=== PATIENT | female | born 1970 | race Caucasian/White ===

== ENCOUNTER → 2017-08-06 11:13 | Outpatient (REF) | payer OTHER, SELFPAY ==
[2017-08-06 18:26] LABS: Basophils # 0.1 K/mm3 (0-0.2); Basophils % 0.5 % (0.1-2.0); Eosinophils # 0.1 K/mm3 (0.0-0.4); Eosinophils % 0.8 % (0.1-12.0); Hematocrit 39.6 % (37.0-47.0); Hemoglobin 11.8 g/dL (12.2-16.2); Lymphocytes # 2.5 K/mm3 (0.7-4.5); Lymphocytes % 26.4 K/mm3 (10-50); Mean Corpuscular HGB Conc 29.7 g/dL (31.8-35.4); Mean Corpuscular Hemoglobin 24.6 pg (27.0-31.2); Mean Corpuscular Volume 82.7 fl (81-99); Mean Platelet Volume 8.4 fl (7.4-10.4); Monocytes # 0.6 K/mm3 (0.1-1.0); Monocytes % 6.7 % (1.7-9.3); Neutrophils # 6.2 K/mm3 (1.8-7.8); Neutrophils % 65.6 % (37.0-80.0); Platelet Count 331 K/mm3 (142-424); Red Blood Count 4.79 M/mm3 (4.20-5.40); Red Cell Distribution Width 17.4 % (11.5-17.5); White Blood Count 9.4 K/mm3 (4.8-10.8)
[2017-08-06 20:06] LABS: Alanine Aminotransferase 18 U/L (12-78); Albumin Level 3.7 gm/dL (3.4-5.0); Albumin/Globulin Ratio 1.2 (1.1-1.8); Alkaline Phosphatase 72 U/L (46-116); Anion Gap 15.4 mEq/L (5-15); Aspartate Amino Transferase 12 U/L (15-37); Bilirubin,Total 0.2 mg/dL (0.2-1.0); Blood Urea Nitrogen 9 mg/dL (7-18); Calcium 8.5 mg/dL (8.5-10.1); Carbon Dioxide 26 mmol/L (21.0-32.0); Chloride 106 mmol/L (98-107); Chol/HDL Ratio 4.7 (1-3.5); Cholesterol 180 mg/dL (140-200); Estimated Glomerular Filt Rate 90 ml/min (>60); GFR (African American) 109 ML/MIN (>60); Globulin 3.1 gm/dl (1.3-3.2); Glucose 78 mg/dL (74-106); HDL Cholesterol 38 mg/dL (29-89); LDL Cholesterol 122 mg/dL (0-130); Potassium 4.4 mmoL/L (3.5-5.1); Sodium 143 mmol/L (136-145); T4 (Thyroxine) 6.4 ug/dl (4.7-13.3); Thyroid Stimulating Hormone 2.32 uIU/ml (0.358-3.740); Total Protein,Serum 6.8 gm/dL (6.4-8.2); Triglycerides 99 mg/dL (30-200); VLDL Cholesterol 20 mg/dL (0-40)
[2017-08-06 20:08] LABS: C-Reactive Protein < 0.2 mg/L (0.0-0.9)
[2017-08-06 20:13] LABS: Erythrocyte Sedimentation Rate 11 mm/hr (0-20)
[2017-08-08 10:28] LABS: Vitamin D 25 Hydroxy 32.9 ng/mL (30.0-100.0)
[2017-08-08 10:30] LABS: RA Latex Turbid. <10.0 IU/mL (0.0-13.9); Vitamin B12 307 pg/mL (232-1245)
[2017-08-08 14:15] LABS: Anti-Jo-1 <0.2 AI (0.0-0.9); Anti-Smith Antibody <0.2 AI (0.0-0.9); Antichromatin Antibodies <0.2 AI (0.0-0.9); Antiscleroderma-70 Antibodies <0.2 AI (0.0-0.9); RNP Antibodies 0.3 AI (0.0-0.9); Sjogren's Anti-SS-A <0.2 AI (0.0-0.9); Sjogren's Anti-SS-B <0.2 AI (0.0-0.9)
[2017-08-10 14:52] LABS: Anti-Centromere B Antibodies <0.2 AI (0.0-0.9); Anti-Cyclic Citrullinated Pept 5 units (0-19); Anti-DNA (DS) Ab Qn 1 IU/mL (0-9)
== END ==
LOC: LAB 11:13
PROVIDERS: Visit Provider Physician Assistant
DX: E03.9 Hypothyroidism, unspecified (principal); E55.9 Vitamin D deficiency, unspecified; D51.9 Vitamin B12 deficiency anemia, unspecified; M06.9 Rheumatoid arthritis, unspecified
CPT/HCPCS: 80053; 80061; 82607; 82652; 84436; 84443; 85025; 85651; 86038; 86140; 86200; 86431

== ENCOUNTER → 2017-09-13 11:02 | Outpatient (REF) | payer OTHER, SELFPAY ==
[2017-09-14 11:13] LABS: Basophils % 0.4 % (0.1-2.0); Eosinophils # 0.3 K/mm3 (0.0-0.4); Eosinophils % 4.5 % (0.1-12.0); Hematocrit 43.1 % (37.0-47.0); Hemoglobin 14.4 g/dL (12.2-16.2); Lymphocytes # 1.5 K/mm3 (0.7-4.5); Lymphocytes % 25.6 K/mm3 (10-50); Mean Corpuscular HGB Conc 33.3 g/dL (31.8-35.4); Mean Corpuscular Hemoglobin 30.9 pg (27.0-31.2); Mean Corpuscular Volume 92.7 fl (81-99); Mean Platelet Volume 9.2 fl (7.4-10.4); Monocytes # 0.4 K/mm3 (0.1-1.0); Monocytes % 6.2 % (1.7-9.3); Neutrophils # 3.8 K/mm3 (1.8-7.8); Neutrophils % 63.2 % (37.0-80.0); Platelet Count 233 K/mm3 (142-424); Red Blood Count 4.65 M/mm3 (4.20-5.40); Red Cell Distribution Width 12.3 % (11.5-17.5); White Blood Count 5.9 K/mm3 (4.8-10.8)
[2017-09-14 12:18] LABS: Alanine Aminotransferase 25 U/L (12-78); Albumin Level 3.9 gm/dL (3.4-5.0); Albumin/Globulin Ratio 1.4 (1.1-1.8); Alkaline Phosphatase 82 U/L (46-116); Anion Gap 12.2 mEq/L (5-15); Aspartate Amino Transferase 18 U/L (15-37); Bilirubin,Total 0.3 mg/dL (0.2-1.0); Blood Urea Nitrogen 9 mg/dL (7-18); Calcium 9.1 mg/dL (8.5-10.1); Carbon Dioxide 28 mmol/L (21.0-32.0); Chloride 107 mmol/L (98-107); Chol/HDL Ratio 4.3 (1-3.5); Cholesterol 232 mg/dL (140-200); Creatinine,Serum 0.78 mg/dL (0.55-1.02); Estimated Glomerular Filt Rate 80 ml/min (>60); GFR (African American) 96 ML/MIN (>60); Globulin 2.8 gm/dl (1.3-3.2); Glucose 91 mg/dL (74-106); HDL Cholesterol 54 mg/dL (29-89); LDL Cholesterol 166 mg/dL (0-130); Potassium 4.2 mmoL/L (3.5-5.1); Sodium 143 mmol/L (136-145); T4 (Thyroxine) 8.5 ug/dl (4.7-13.3); Thyroid Stimulating Hormone 0.86 uIU/ml (0.358-3.740); Total Protein,Serum 6.7 gm/dL (6.4-8.2); Triglycerides 60 mg/dL (30-200); VLDL Cholesterol 12 mg/dL (0-40)
[2017-09-16 18:48] LABS: Vitamin B12 658 pg/mL (232-1245); Vitamin D 25 Hydroxy 17.6 ng/mL (30.0-100.0)
== END ==
LOC: LAB 11:02
PROVIDERS: Family Provider Emergency Medicine; PCP Emergency Medicine; Visit Provider Physician Assistant
DX: E55.9 Vitamin D deficiency, unspecified (principal); E03.9 Hypothyroidism, unspecified; D51.9 Vitamin B12 deficiency anemia, unspecified
CPT/HCPCS: 80053; 80061; 82607; 82652; 84436; 84443; 85025

== ENCOUNTER 2017-10-15 08:30 | Outpatient (RCR) | payer OTHER, SELFPAY ==
--- NOTE | 2017-09-12 13:37 | HMH.PTOPEV ---
Rehab Outpatient Evaluation Rehab OP Evaluation Start: 09/12/17 11:33 Freq: Status: Active Protocol: Document 09/12/17 11:33 WALTER (Rec: 09/12/17 13:37 WALTER [id number]) Electronically Signed By Bakari Ayala, PT 09/12/17 11:33 Outpatient Therapy Subjective History Subjective History Ms. Egan is a 47 year old female who presents to outpatient PT with LB and BLE pain 3-4 years ago of insidious onset per pt. report . Pt. states her pain has progressively gotten worse enough to see her MD. Pt reports that she has previously seen a chiropractor for her back pain, which did not provide any lasting relief . Slight lumbar scloliosis concave left noted. PMH include tubal ligation, blood disorder, 2 blood transfusions , and RA since 13 years of age per pt. report. Current medication include Gabapentin, Tramadol, anxiety, B-12 shot, thyroid, and Vitamin D. Chief Complaint Pain Symptom Type Sharp Tingling Other Symptoms Relieved By Rest/Positioning Heat OTC Meds Prescription Meds Activity Symptoms Aggravated By Prone Standing Walking Lifting Prior Functional Limitations None Current Functional Limitations Reaching Lifting Housework Driving Sleeping Standing Sitting Squatting Recreation Activity Walking Stairs Symptom Description Intermittent Activity Dependent Level of pain today (0-10) 0 Pain scale - at its best (0-10) 0 Pain scale - at its worst (0-10) 7 Lumbopelvic Eval Assistive device Assistive Devices None / NA Gait Observati
== END 2017-10-15 08:31 | disposition home or self-care (01) ==
LOC: PT 08:30
PROVIDERS: Family Provider Emergency Medicine; PCP Emergency Medicine; Visit Provider Physician Assistant
DX: M48.061 Spinal stenosis, lumbar region without neurogenic claudication (principal)
CPT/HCPCS: 97010; 97014; 97110; 97163; G0283

== ENCOUNTER → 2017-11-06 08:01 | Outpatient (CLI) | payer OTHER, SELFPAY ==
--- NOTE | 2017-11-06 08:03 | MR_ITS ---
MR lumbar spine wo con, MR 3-d myelogram/MRCP HISTORY: PT states low back pain X years. Bilateral Leg pain X 1 yr or longer. ITS.REASON: Low back pain ORDERING PHYSICIAN: HODA Holder PATIENT AGE: 47 years Comparison: X-RAY 02/15/13 TECHNIQUE: Standard multiplanar multiecho sequences are performed without contrast. 3-D MIP and myelographic images are also rendered and reviewed FINDINGS: Normal alignment. The spinal cord ends at the L1 level. T11-T12: Mild facet hypertrophic change with mild right lateral recess narrowing. T12-L1 and L1-L2 and L2-L3 have an unremarkable appearance. L3-L4: Mild decrease in the disc height with disc desiccation and minimal bulging disc.. Minimal facet and ligamentum flavum hypertrophy with mild bilateral lateral recess and foraminal narrowing. L4-5: Mild facet and ligamentum flavum hypertrophy. L5-S1: Unremarkable. Small areas of increased T2 signal involving the right aspect of L1 and L3 vertebral bodies posteriorly may be due to small hemangiomas. IMPRESSION: 1. No disc herniation or canal stenosis. 2. Mild degenerative disc disease at L3-L4 with minimal bulging disc and mild bilateral lateral recess and foraminal narrowing. 3. Mild facet and ligamentum flavum hypertrophic changes as described above IMPRESSION:
== END ==
PROVIDERS: Family Provider Emergency Medicine; PCP Emergency Medicine; Visit Provider Physician Assistant
DX: M48.062 Spinal stenosis, lumbar region with neurogenic claudication (principal)
CPT/HCPCS: 72148; 76376

== ENCOUNTER → 2018-04-10 13:52 | Outpatient (CLI) | payer OTHER, SELFPAY ==
[2018-04-10 14:32] LABS: Amphetamine/Metha Screen,Urine Negative ng/mL (<1000); Barbiturates Screen,Urine Negative ng/mL (<200); Benzodiazepines Screen,Urine Negative ng/mL (<200); Cannabinoid Screen,Urine Negative ng/mL (<50); Cocaine Screen,Urine Negative ng/mL (<300); Methadone Screen,Urine Negative ng/mL (<300); Opiate Screen,Urine Negative ng/mL (<300); Phencyclidine Screen,Urine Negative ng/mL (<25)
== END ==
PROVIDERS: PCP Emergency Medicine; Visit Provider Emergency Medicine
DX: Z79.899 Other long term (current) drug therapy (principal)
CPT/HCPCS: 80305

== ENCOUNTER → 2020-06-30 18:38 | Outpatient (CLI) | payer OTHER, SELFPAY ==
[2020-06-30 19:28] LABS: Basophils # 0.1 K/mm3 (0-0.2); Basophils % 0.6 % (0.1-2.0); Eosinophils # 0.1 K/mm3 (0.0-0.4); Eosinophils % 1.1 % (0.1-12.0); Hematocrit 49.4 % (37.0-47.0); Hemoglobin 15.8 g/dL (12.2-16.2); Lymphocytes % 26.3 % (10-50); Mean Corpuscular Hemoglobin 30.2 pg (27.0-31.2); Mean Corpuscular Volume 94.2 fl (81-99); Mean Platelet Volume 8.3 fl (7.4-10.4); Monocytes # 0.6 K/mm3 (0.1-1.0); Monocytes % 5.3 % (1.7-9.3); Neutrophils # 7.5 K/mm3 (1.8-7.8); Neutrophils % 66.7 % (37.0-80.0); Platelet Count 368 K/mm3 (142-424); Red Blood Count 5.24 M/mm3 (4.20-5.40); Red Cell Distribution Width 14.5 % (11.5-17.5); White Blood Count 11.2 K/mm3 (4.8-10.8)
[2020-06-30 19:36] LABS: Barbiturates Screen,Urine Negative ng/ml (<200)
[2020-06-30 19:37] LABS: Amphetamine/Metha Screen,Urine Positive ng/ml (<1000); Benzodiazepines Screen,Urine Negative ng/ml (<200)
[2020-06-30 19:38] LABS: Cannabinoid Screen,Urine Negative ng/ml (<50); Methadone Screen,Urine Negative ng/ml (<300)
[2020-06-30 19:39] LABS: Alanine Aminotransferase 56 U/L (12-78); Albumin Level 4.8 g/dl (3.5-5.0); Albumin/Globulin Ratio 1.4 (1.1-1.8); Alkaline Phosphatase 97 U/L (38-126); Anion Gap 14.3 mEq/L (5-15); Aspartate Amino Transferase 46 U/L (14-36); Bilirubin,Total 0.6 mg/dl (0.2-1.3); Blood Urea Nitrogen 12 mg/dl (7-17); Calcium 9.8 mg/dl (8.4-10.2); Carbon Dioxide 26 mmol/L (22.0-30.0); Chloride 103 mmol/L (98-107); Cholesterol 256 mg/dl (140-200); Cocaine Screen,Urine Negative ng/ml (<300); Estimated Glomerular Filt Rate 89 ml/min (>60); GFR (African American) 108 ML/MIN (>60); Globulin 3.5 g/dL (1.3-3.2); Glucose 90 mg/dl (74-100); HDL Cholesterol 51 mg/dl (40-60); Potassium 4.3 mmoL/L (3.5-5.1); Sodium 139 mmol/L (136-145); Total Protein,Serum 8.3 g/dl (6.3-8.2); Triglycerides 237 mg/dl (30-150); VLDL Cholesterol 47 mg/dL (0-40)
[2020-06-30 19:40] LABS: Opiate Screen,Urine Negative ng/ml (<300); Phencyclidine Screen,Urine Negative ng/ml (<25)
[2020-06-30 19:50] LABS: Direct LDL Cholesterol 164.62 mg/dL (100-129)
[2020-06-30 19:56] LABS: 25-OH Vitamin D, Total 21.1 ng/mL (30-100)
[2020-06-30 19:57] LABS: Free T4 (Free Thyroxine) 0.81 ng/dl (0.78-2.19)
[2020-06-30 20:10] LABS: Thyroid Stimulating Hormone 8.62 uIU/mL (0.465-4.68)
[2020-06-30 20:29] LABS: Vitamin B12 361 pg/mL (239-931)
== END ==
PROVIDERS: Visit Provider Physician Assistant
DX: E78.5 Hyperlipidemia, unspecified (principal); E03.9 Hypothyroidism, unspecified; D51.9 Vitamin B12 deficiency anemia, unspecified; E55.9 Vitamin D deficiency, unspecified; Z79.899 Other long term (current) drug therapy
CPT/HCPCS: 80053; 80061; 80305; 82306; 82607; 84439; 84443; 85025

== ENCOUNTER 2024-03-12 15:30 | Outpatient (CLI) | payer OTHER, SELFPAY ==
[2024-03-12 18:40] LABS: Basophils # 0.1 K/mm3 (0-0.2); Basophils % 1.1 % (0.1-2.0); Eosinophils # 0.2 K/mm3 (0.0-0.4); Eosinophils % 1.7 % (0.1-12.0); Hematocrit 41.9 % (37.0-47.0); Hemoglobin 14.6 g/dL (12.2-16.2); Lymphocytes # 3.1 K/mm3 (0.7-4.5); Lymphocytes % 30.2 % (10-50); Mean Corpuscular HGB Conc 34.8 g/dL (31.8-35.4); Mean Corpuscular Hemoglobin 32.8 pg (27.0-31.2); Mean Corpuscular Volume 94.3 fl (81-99); Mean Platelet Volume 8.1 fl (7.4-10.4); Monocytes # 0.6 K/mm3 (0.1-1.0); Monocytes % 5.9 % (1.7-9.3); Neutrophils # 6.2 K/mm3 (1.8-7.8); Platelet Count 354 K/mm3 (142-424); Red Blood Count 4.45 M/mm3 (4.20-5.40); White Blood Count 10.2 K/mm3 (4.8-10.8)
[2024-03-12 19:17] LABS: Albumin Level 4.5 g/dl (3.5-5.0); Chloride 109 mmol/L (98-107); Potassium 4.2 mmoL/L (3.5-5.1); Sodium 140 mmol/L (136-145)
[2024-03-12 19:20] LABS: Alanine Aminotransferase 23 U/L (12-78); Albumin/Globulin Ratio 1.6 (1.1-1.8); Alkaline Phosphatase 82 U/L (38-126); Anion Gap 12.2 mEq/L (5-15); Aspartate Amino Transferase 24 U/L (14-36); Bilirubin,Total 0.7 mg/dl (0.2-1.3); Blood Urea Nitrogen 13 mg/dl (7-17); Calcium 9.7 mg/dl (8.4-10.2); Carbon Dioxide 23 mmol/L (22.0-30.0); Cholesterol 211 mg/dl (140-200); Estimated Glomerular Filt Rate 75 ml/min (>60); GFR (African American) 91 ML/MIN (>60); Globulin 2.9 g/dL (1.3-3.2); Glucose 79 mg/dl (74-100); Iron 106 ug/dL (37-170); Total Protein,Serum 7.4 g/dl (6.3-8.2); Triglycerides 140 mg/dl (30-150); VLDL Cholesterol 28 mg/dL (0-40)
[2024-03-12 19:21] LABS: Chol/HDL Ratio 5.4 (1-3.5); HDL Cholesterol 39 mg/dl (40-60)
[2024-03-12 19:32] LABS: Direct LDL Cholesterol 132.45 mg/dL (100-129)
[2024-03-12 19:47] LABS: Total Iron Binding Capacity 273 ug/dL (265-497)
[2024-03-12 19:56] LABS: Ferritin 29.4 ng/ml (11.1-264)
[2024-03-12 19:57] LABS: 25-OH Vitamin D, Total 42.9 ng/mL (30-100)
[2024-03-12 21:39] LABS: Vitamin B12 385 pg/mL (239-931)
[2024-03-12 21:45] LABS: Folate 7.13 ng/mL
== END 2024-03-12 23:59 | disposition home or self-care (01) ==
LOC: LAB.DROPOF 03-13 12:16
PROVIDERS: PCP Nurse Practitioner Family; Visit Provider Nurse Practitioner Family
DX: I10 Essential (primary) hypertension (principal); E53.8 Deficiency of other specified B group vitamins; E03.9 Hypothyroidism, unspecified; E55.9 Vitamin D deficiency, unspecified; F32.1 Major depressive disorder, single episode, moderate; E66.813 Obesity, class 3; Z68.41 Body mass index [BMI] 40.0-44.9, adult
CPT/HCPCS: 80053; 80061; 82306; 82607; 82728; 82746; 83540; 83550; 85025

== ENCOUNTER 2024-03-24 15:58 | Outpatient (CLI) | payer OTHER, SELFPAY ==
[2024-03-24 19:51] LABS: Vitamin B12 395 pg/mL (239-931)
== END 2024-03-24 23:59 | disposition home or self-care (01) ==
LOC: LAB.DROPOF 03-25 12:54
PROVIDERS: PCP Nurse Practitioner Family; Visit Provider Nurse Practitioner Family
DX: E53.8 Deficiency of other specified B group vitamins (principal); E55.9 Vitamin D deficiency, unspecified; I10 Essential (primary) hypertension
CPT/HCPCS: 82306; 82607; 84443

== ENCOUNTER 2024-04-28 16:42 | Outpatient (CLI) | payer OTHER, SELFPAY ==
--- NOTE | 2024-04-28 16:42 | MM_ITS ---
PROCEDURE INFORMATION: Exam: MG Bilateral Screening 3D Mammography Exam date and time: 04/28/2024 4:31 PM Age: 54 years old Clinical indication: Screening mammogram TECHNIQUE: Imaging protocol: Bilateral Screening tomosynthesis and 2D mammography including computer-aided detection (CAD) when performed. COMPARISON: No relevant prior studies available. FINDINGS: MAMMOGRAPHY: Breast composition: There are scattered areas of fibroglandular density. Mass: None. Architectural distortion: No new or suspicious architectural distortion. Calcifications: No new or suspicious calcifications are present Asymmetric density: No new or suspicious asymmetric density is present Skin thickening: None. Axillary adenopathy: None. IMPRESSION: No mammographic evidence of malignancy. Recommend annual screening mammography unless otherwise clinically indicated. ASSESSMENT: BI-RADS category 1: Negative.
== END 2024-04-28 23:59 | disposition home or self-care (01) ==
LOC: RAD 16:42
PROVIDERS: PCP Nurse Practitioner Family; Visit Provider Nurse Practitioner Family
DX: Z12.31 Encounter for screening mammogram for malignant neoplasm of breast (principal)
CPT/HCPCS: 77063; 77067

== ENCOUNTER 2024-06-19 16:07 | Outpatient (CLI) | payer OTHER, SELFPAY ==
[2024-06-19 19:53] LABS: Thyroid Stimulating Hormone 7.29 uIU/mL (0.465-4.68)
== END 2024-06-19 23:59 | disposition home or self-care (01) ==
LOC: LAB.DROPOF 06-20 10:28
PROVIDERS: PCP Family Medicine; Visit Provider Family Medicine
DX: R79.89 Other specified abnormal findings of blood chemistry (principal)
CPT/HCPCS: 84443

== ENCOUNTER 2024-09-10 08:23 | Day surgery (SDC) | payer OTHER, SELFPAY ==
[2024-09-10] VITALS (7 sets, daily range): BP systolic 88–141; BP diastolic 61–76; PULSE 62–79; RESP 16–18; TEMP 36.1–36.3; O2SAT 97–99; BMI 42.2
[2024-09-10] MEDS: LACTATED RINGERS 1000ML 1,000 ML 50 ML IV (09:50)
--- NOTE | 2024-09-10 10:24 | EXP.HP ---
History of Present Illness *Admission Date: 09/10/24 *Reason for visit:: Screening for colon cancer *History of present illness: Mrs. Egan is a 54-year-old female who is here for initial screening colonoscopy. The examination is deemed medically necessary for screening colonoscopy. The patient has been seen, interviewed and examined prior to the procedure by both myself and the anesthesia provider. [facility] Disclaimer: The information contained in this section may have been updated after the patient was seen, as this information can be updated by other users. Medical History (Updated 09/10/24 @ 10:25 by Eliel Erazo II, MD) B12 deficiency Hypertension Depression Lumbar degenerative disc disease Bulging lumbar disc (~11/08/17) Lumbar facet arthropathy (~11/08/17) Lumbar degenerative disc disease (~11/08/17) Hyperlipidemia (~09/17/17) RLS (restless legs syndrome) B12 deficiency Rheumatoid arthritis Bilateral leg pain Neurogenic claudication RLS (restless legs syndrome) Vitamin B12 deficiency anemia Hypothyroidism Family History (Updated 09/10/24 @ 09:42 by Dianne Hair RN) Other Heart disease Social History (Updated 09/10/24 @ 09:42 by Dianne Hair RN) Smoking Status: Current every day smoker tobacco type: cigarettes packs per day: 1 alcohol intake: never substance use type: denies use current occupational status: unemployed Travel in the last 8 weeks: None household members: spouse housing: house caffeine: Yes Have you lived/traveled outside US in past 30 days?: No Contact w/someone who lives/traveled outside US past 30 days?: No Exposure to someone with infectious disease in past 14 days?: No Do you have a fever (greater than 100.4 F or 38 C)?: No Have you tested positive for COVID-19: No Exposed to someone with COVID-19 in past 14 days?: No Do you have a sore throat?: No Do you have a cough?: No Do you have any weakness?: No Are you experiencing any nausea/vomitting?: No Do you have any diarrhea?: No Are you experiencing any unusual bleeding?: No Do you have any muscle aches/pain?: No Do you have any abdominal pain?: No Are you experiencing loss of taste or smell?: No Other Medical History Have you received the Flu Vaccine for this season: No Have you received the Pneumonia Vaccine: No Review of Systems Review of Systems Review of systems (narrative): Negative *Cardiovascular Comments: Negative *Gastrointestinal Comments: Negative *Genitourinary Comments: Negative *Musculoskeletal Comments: Negative *Neurologic Comments: Negative Meds Home Medications and Allergies Home Medications ?Medication ?Instructions ?Recorded ?Confirmed ?Type blood pressure monitor (Blood #1 ea 06/30/20 09/10/24 Rx Pressure Kit) levothyroxine 88 mcg capsule 88 mcg PO DAILY #30 caps 06/20/24 09/10/24 Rx cholecalciferol (vitamin D3) 25 See Rx Instructions .Route 07/08/24 09/10/24 Rx mcg (1,000 unit) tablet .COMPLEX #90 tabs sodium,potassium,mag sulfates 17.5 See Rx Instructions PO .COMPLEX 08/27/24 09/10/24 Rx gram-3.13 gram-1.6 gram oral soln #354 mL (Suprep Bowel Prep Kit) peg 3350-electrolytes 236 240 ml PO Q10M colonscopy #4,000 mL 09/05/24 09/10/24 Rx gram-22.74 gram-6.74 gram-5.86 gram solution (Golytely) atorvastatin 10 mg tablet 10 mg PO DAILY 09/10/24 09/10/24 History escitalopram oxalate 10 mg tablet 10 mg PO DAILY 09/10/24 09/10/24 History (Lexapro) lisinopril 20 mg tablet 20 mg PO DAILY 09/10/24 09/10/24 History metoprolol succinate 25 mg 25 mg PO DAILY 09/10/24 09/10/24 History tablet,extended release 24 hr New Prescriptions to Start Prescriptions: Allergies Allergy/AdvReac Type Severity Reaction Status Date / Time Penicillins (PENICILLINS) Allergy Unknown Unknown Verified 09/10/24 09:36 allergy reaction SWEET POTATO Allergy Unknown Anaphylaxis Uncoded 09/10/24 09:36 Exam Data for Last 24 hours Vital signs and Labs for Last 24 Hours: Temp Pulse Resp BP Pulse Ox O2 Del Method 97.4 F L 64 18 141/76 H 98 Room Air 09/10/24 09:40 09/10/24 09:40 09/10/24 09:40 09/10/24 09:40 09/10/24 09:40 09/10/24 09:40 I & O for Last 24 hours: Intake & Output 09/07/24 09/08/24 09/09/24 09/10/24 23:59 23:59 23:59 23:59 Weight 231 lb *Routine HEENT Exam Head: Present normocephalic Eye: Present EOMI and PERRL ENT: Present mucous membranes moist *Routine Neck Exam Neck: Present supple *Routine Respiratory Exam Respiratory: Present CTA bilaterally *Routine Cardiovascular Exam Cardiovascular: Present RRR *Routine Abdominal Exam Abdominal: Present soft and normoactive bowel sounds; Absent tenderness *Routine Rectal Exam Rectal:: deferred *Routine Genitalia Exam Genitalia:: deferred *Routine Extremities Exam Extremities: Absent cyanosis, clubbing or edema *Routine Skin Exam Skin: Present warm; Absent rash *Routine Neurological Exam Neurological: Present alert and oriented X3 Assessment and Plan *Assessment and plan (1) Screening for colon cancer: Status: Acute Category: Medical Code(s): Z12.11 - Encounter for screening for malignant neoplasm of colon Plan A/P: 1. Screening for colon cancer is the preprocedural diagnosis. This is the patient's first colonoscopy. The patient will be anesthetized/sedated using MAC sedation. The patient has been seen and examined. Cardiac and lung assessment prior to the examination is stable. Proceed with planned screening colonoscopy.
--- NOTE | 2024-09-10 10:25 | P.PCN_ITS ---
[facility] Procedure Note Date: 09/10/24 Time: 10:42 Procedure Note:: Colonoscopy Procedure Report: Colonoscopy with cold snare polypectomy Endoscopist: Eliel Erazo II, MD Referring physician: HEMANT Shukla Date of Procedure: September 10, 2024 Equipment: Olympus 190 variable stiffness pediatric colonoscope Sedation: MAC sedation Indication: Mrs. Egan is a 54-year-old female who is here for initial screening colonoscopy. The patient reports no abdominal pain, weight loss, change in her bowel habits or rectal bleeding. She reports no family history of colon cancer. Procedure: Prior to the procedure, a history and physical exam was performed, and patient's medications and allergies were reviewed. The risks, benefits and alternatives of the sedation and procedure were discussed with the patient. All questions were answered and informed consent was obtained. The patient was brought to the procedure room. Patient identification and proposed procedure were verified by the physician and the nurse. The patient was placed in a left lateral decubitus position and the scope was passed under direct vision. Throughout the procedure, the patient's blood pressure, pulse, and oxygen saturations were monitored continuously. The colonoscopy was accomplished without difficulty. The patient tolerated the procedure well. Findings: On digital rectal examination there was normal rectal tone. There were no external hemorrhoids. The colonoscope was introduced through the anal canal to the rectum and advanced to the cecum. The ileocecal valve and appendiceal orifice were identified. The scope was advanced a short distance into the ileum which appeared grossly normal. The scope was then withdrawn into the colon. There were 2 diminutive polyps (ascending x 1 (5 mm) and transverse x 1 (3 mm)). Both of these were removed via cold snare polypectomy. The remaining cecum, ascending and transverse colon and mucosa were grossly normal. There were scattered diverticuli throughout the descending and sigmoid colon (LEFT colon). The rectum itself was normal. Upon retroflexion within the rectum there were grade 1 internal hemorrhoids. The preparation was excellent throughout with [place] Preparation Score of 9. The cecal time was 12 minutes. Impression: 1. Diminutive colonic polyps x 2 2. Left-sided diverticulosis 3. Grade 1 internal hemorrhoids Plan: I will follow-up the polyp histology and recommend repeat surveillance colonoscopy again in 5 to 10 years based upon the pathology. I would encourage psyllium fiber supplementation on a maintenance basis.
--- NOTE | 2024-09-10 10:27 | P.PNANES_ITS ---
[facility] Disclaimer: The information contained in this section may have been updated after the patient was seen, as this information can be updated by other users. Medical History (Updated 09/10/24 @ 10:25 by Eliel Erazo II, MD) B12 deficiency Hypertension Depression Lumbar degenerative disc disease Bulging lumbar disc (~11/08/17) Lumbar facet arthropathy (~11/08/17) Lumbar degenerative disc disease (~11/08/17) Hyperlipidemia (~09/17/17) RLS (restless legs syndrome) B12 deficiency Rheumatoid arthritis Bilateral leg pain Neurogenic claudication RLS (restless legs syndrome) Vitamin B12 deficiency anemia Hypothyroidism Family History (Updated 09/10/24 @ 09:42 by Dianne Hair RN) Other Heart disease Social History (Updated 09/10/24 @ 09:42 by Dianne Hair RN) Smoking Status: Current every day smoker tobacco type: cigarettes packs per day: 1 alcohol intake: never substance use type: denies use current occupational status: unemployed Travel in the last 8 weeks: None household members: spouse housing: house caffeine: Yes Have you lived/traveled outside US in past 30 days?: No Contact w/someone who lives/traveled outside US past 30 days?: No Exposure to someone with infectious disease in past 14 days?: No Do you have a fever (greater than 100.4 F or 38 C)?: No Have you tested positive for COVID-19: No Exposed to someone with COVID-19 in past 14 days?: No Do you have a sore throat?: No Do you have a cough?: No Do you have any weakness?: No Are you experiencing any nausea/vomitting?: No Do you have any diarrhea?: No Are you experiencing any unusual bleeding?: No Do you have any muscle aches/pain?: No Do you have any abdominal pain?: No Are you experiencing loss of taste or smell?: No [facility] Anesthesia Checklist Patient Identification Patient Identification: Verbal (Name & ) Structural Data Admitted From: Home Planned Operative Procedure/s: colonoscopy Consent for Planned Operative Procedure(s) Verified: Yes Verified Documents: Surgical Consent NPO Status Verified Time NPO: 00:00 Chart Verification Results Verified: None Additional verifications Patient : No Anesthesia Reactions: No Hx Blood Transfusions: No Blood Transfusion Reaction: No Cephalosporin Allergy: No Previous Colonoscopy: No Airway Assessment Mallampati Score:: Class II C-Spine Mobility Assessed: Yes TMJ Mobility Assessed: No Dentition: Poor Dentition (Bottom two front teeth loose) Neurological Assessment Level of Consciousness: Awake, Alert and Appropriate Hx Seizures: No Numbness or tingling in extremities: No Anesthesia Plan Anesthesia Risk discussed: Yes Anesthesia Plan: Verified ASA Class: III Anesthesia Type: MAC
== END 2024-09-10 11:25 | disposition home or self-care (01) ==
PROVIDERS: PCP Family Medicine; Visit Provider Internal Medicine Gastroenterology
PROC: 0DJD8ZZ Inspection of Lower Intestinal Tract, Via Natural or Artificial Opening Endoscopic (ICD-10-PCS; CPT 45378; principal; 2024-09-10 14:00)
DX: K63.5 Polyp of colon (principal); K57.30 Diverticulosis of large intestine without perforation or abscess without bleeding; K64.0 First degree hemorrhoids; Z12.11 Encounter for screening for malignant neoplasm of colon
CPT/HCPCS: 45385; J7120

== ENCOUNTER 2024-10-31 09:04 | Outpatient (CLI) | payer OTHER, SELFPAY ==
[2024-10-31 19:01] LABS: Thyroid Stimulating Hormone 3.79 uIU/mL (0.465-4.68)
== END 2024-10-31 23:59 | disposition home or self-care (01) ==
LOC: LAB.DROPOF 11-03 09:05
PROVIDERS: PCP Family Medicine; Visit Provider Family Medicine
DX: E03.9 Hypothyroidism, unspecified (principal)
CPT/HCPCS: 84443

== ENCOUNTER 2025-04-01 15:01 | Outpatient (CLI) | payer OTHER, SELFPAY ==
[2025-04-01 20:28] LABS: Hematocrit 43.7 % (37.0-47.0); Hemoglobin 14.0 g/dL (12.2-16.2); Immature Granulocytes % 0.4 %; Mean Corpuscular HGB Conc 32.0 g/dL (31.8-35.4); Mean Corpuscular Hemoglobin 30.5 pg (27.0-31.2); Mean Corpuscular Volume 95.2 fl (81-99); Nucleated Red Blood Cells % 0 %; Platelet Count 388 K/mm3 (142-424); Red Blood Count 4.59 M/mm3 (4.20-5.40); Red Cell Distribution Width-SD 46.7 fL; White Blood Count 9.5 K/mm3 (4.8-10.8)
[2025-04-01 21:06] LABS: Potassium 4.5 mmoL/L (3.5-5.1)
[2025-04-01 21:08] LABS: Alanine Aminotransferase 27 U/L (12-78); Aspartate Amino Transferase 27 U/L (14-36); Blood Urea Nitrogen 10 mg/dl (7-17); Carbon Dioxide 27 mmol/L (22.0-30.0); Creatinine,Serum 0.80 mg/dl (0.52-1.04); Estimated Glomerular Filt Rate 75 ml/min (>60); GFR (African American) 90 ML/MIN (>60)
[2025-04-01 21:09] LABS: Alkaline Phosphatase 93 U/L (38-126); Bilirubin,Total 0.7 mg/dl (0.2-1.3); Cholesterol 169 mg/dl (140-200); Glucose 107 mg/dl (74-100); HDL Cholesterol 33 mg/dl (40-60); Iron 97 ug/dL (37-170); Total Protein,Serum 7.3 g/dl (6.3-8.2); Triglycerides 272 mg/dl (30-150)
[2025-04-01 21:20] LABS: Total Iron Binding Capacity 251 ug/dL (265-497)
[2025-04-01 21:24] LABS: Albumin Level 5.0 g/dl (3.5-5.0); Albumin/Globulin Ratio 2.2 (1.1-1.8); Anion Gap 15.5 mEq/L (5-15); Chloride 104 mmol/L (98-107); Globulin 2.3 g/dL (1.3-3.2); Sodium 142 mmol/L (136-145)
[2025-04-01 21:44] LABS: Thyroid Stimulating Hormone 8.50 uIU/mL (0.465-4.68)
[2025-04-01 22:03] LABS: Vitamin B12 300 pg/mL (239-931)
[2025-04-01 22:19] LABS: Folate 7.11 ng/mL
== END 2025-04-01 23:59 | disposition home or self-care (01) ==
LOC: LAB.DROPOF 04-02 20:18
PROVIDERS: PCP Family Medicine; Visit Provider Nurse Practitioner Family
DX: E53.8 Deficiency of other specified B group vitamins (principal); I10 Essential (primary) hypertension; E66.9 Obesity, unspecified; M06.9 Rheumatoid arthritis, unspecified; E03.9 Hypothyroidism, unspecified
CPT/HCPCS: 80053; 80061; 82607; 82746; 83540; 83550; 84443; 85025

== ENCOUNTER 2025-05-06 15:16 | Outpatient (CLI) | payer OTHER, SELFPAY ==
--- NOTE | 2025-05-06 15:30 | CT_ITS ---
FINAL REPORT TECHNIQUE: Thin section axial images were obtained from the lung apices to the upper abdomen by computed tomography. Reformatted images were obtained and reviewed. This study was performed with techniques to keep radiation doses al low as reasonably achievable (ALARA). Individualized dose reduction techniques using automated exposure control or adjustment of mA and/or kV according to the patient's size were employed. CLINICAL HISTORY: lung cancer screening smoker 32 years, 1 ppd copd COMPARISON: None FINDINGS: CHEST CT LOW DOSE 55-year-old female, current smoker, [id number] history. CTDI vol (mGy): 2.90 DLP (mGy-cm): 96.38 There is no axillary adenopathy. There is no mediastinal or hilar mass or adenopathy. The heart is normal in size. Dense coronary artery calcifications are noted. There is no pericardial or pleural effusion. Lung window images demonstrate calcified nodules. There is a 4 mm right upper lobe nodule in the periphery, best seen on image #141 of series 2. There is a 6 mm nodule in the right lower lobe, seen on image #168 of series 2. There is a pleural-based nodule 6 mm in the posterior right lower lobe, image #225 of series 2. There is a left upper lobe nodule, 4 mm in size, best seen on image #168 of series 2. Limited images of the upper abdomen are unremarkable. IMPRESSION: Lung-RADS category 3S, the S designation for coronary artery calcifications. Recommend 6 month follow up low dose chest CT. Reviewed, Interpreted and Dictated by Ambrose Cheng MD Transcribed by Jazmin Barr Authenticated and [facility]
== END 2025-05-06 23:59 | disposition home or self-care (01) ==
LOC: RAD 15:16
PROVIDERS: PCP Family Medicine; Visit Provider Nurse Practitioner Family
DX: Z12.2 Encounter for screening for malignant neoplasm of respiratory organs (principal); F17.210 Nicotine dependence, cigarettes, uncomplicated; J44.9 Chronic obstructive pulmonary disease, unspecified; R91.8 Other nonspecific abnormal finding of lung field; I25.10 Atherosclerotic heart disease of native coronary artery without angina pectoris
CPT/HCPCS: 71271